=== PATIENT | male | born 1945 | race Hispanic/Latino ===

== ENCOUNTER 2019-06-10 21:33 | Emergency (ER) | payer OTHER ==
[2019-06-10] MEDS ORDERED: ORPHENADRINE CITRATE 30 MG/ML ML ONE (22:09)
[2019-06-10] MEDS ORDERED: KETOROLAC TROMETHAMINE 30MG/ML ONE (22:09)
[2019-06-10] MEDS ORDERED: LIDOCAINE 5% TOPICAL PATCH TP ONE (23:21)
== END 2019-06-10 23:34 | disposition home or self-care (01) ==
LOC: EDH 21:33
DX: M13.821 Other specified arthritis, right elbow (principal); I10 Essential (primary) hypertension; E11.9 Type 2 diabetes mellitus without complications
CPT/HCPCS: 73070; 96372 ×2; 99284; J1885; J2360

== ENCOUNTER → 2023-07-11 | Outpatient (CLI) | payer OTHER ==
[2023-07-11 12:46] LABS: CREATININE 1.3 mg/dL (0.5-1.5); POTASSIUM 4.8 mmol/L (3.5-5.1)
== END | disposition home or self-care (01) ==
LOC: LAB 08:49
PROVIDERS: ATTEND Internal Medicine Cardiovascular Disease
DX: I10 Essential (primary) hypertension (principal)
CPT/HCPCS: 36415; 80048

== ENCOUNTER → 2023-07-18 | Outpatient (CLI) | payer OTHER ==
[2023-07-18 12:56] LABS: CREATININE 1.3 mg/dL (0.5-1.5); POTASSIUM 4.7 mmol/L (3.5-5.1)
== END | disposition home or self-care (01) ==
LOC: LAB 08:06
PROVIDERS: ATTEND Internal Medicine Cardiovascular Disease
DX: I10 Essential (primary) hypertension (principal)
CPT/HCPCS: 36415; 80048

== ENCOUNTER → 2023-07-25 | Outpatient (CLI) | payer OTHER ==
[2023-07-25 12:25] LABS: CREATININE 1.2 mg/dL (0.5-1.5)
== END | disposition home or self-care (01) ==
LOC: LAB 08:14
PROVIDERS: ATTEND Internal Medicine Cardiovascular Disease
DX: I10 Essential (primary) hypertension (principal)
CPT/HCPCS: 36415; 80048

== ENCOUNTER → 2023-08-29 | Outpatient (CLI) | payer OTHER | END | disposition home or self-care (01) | LOC: SHCH 08-24 08:17 | PROVIDERS: ATTEND Internal Medicine Cardiovascular Disease | DX: Q27.1 Congenital renal artery stenosis (principal) | CPT/HCPCS: 93975 ==